=== PATIENT | female | born 1940 | race Caucasian/White ===

== ENCOUNTER 2017-02-27 08:18 | Inpatient (IN) | payer OTHER ==
[~2017-02-27] VITALS: Ht 162.6 cm; Wt 65.4 kg
[~2017-02-27 08:18] MED LIST: ADVAIR 250/501 DISK; CATAPRES0.1 MG PO; DESYREL12.5 MG PO; DIAZEPAM10 MG PO; FORTICAL3.7 ML ALT NARES; GLUCOPHAGE1000 MG PO; GLUCOTROL5 MG PO; LIPITOR10 MG PO; LOTREL 5/101 CAPSULE PO; NEXIUM40 MG PO; SPIRIVA1 INHALATI IH
[2017-02-27 09:09] LABS: EOSINOPHIL (%) 1.1 % (0-5); EOSINOPHIL COUNT 0.1 K/uL (0-0.3); HEMATOCRIT 32.3 % (36.0-46.0); IMMATURE GRANULOCYTE (%) 0.3 % (0.0-0.7); INSTRUMENT ABS NEUTROPHIL CT 5.7 K/uL; LYMPHOCYTE COUNT 1.1 K/uL (1.0-2.8); MCH 25.4 PG (29.0-34.0); MCHC 32.5 G/DL (30.0-36.0); MCV 78.2 FL (83-99); MEAN PLAT.VOLUME 9.5 uM^3 (9.5-12.4); MONOCYTE (%) 6.5 % (3-12); MONOCYTE COUNT 0.5 K/uL (0-0.8); NEUTROPHIL (%) 76.9 % (45-76); NEUTROPHIL COUNT 5.7 K/uL (1.8-6.4); PLATELET COUNT 333 K/uL (156-360); RBC DIS.WIDTH-CV 16.5 % (11.8-14.6); RED BLOOD COUNT 4.13 M/uL (3.80-5.20); WHITE BLOOD COUNT 7.4 K/uL (4.1-10.2)
[2017-02-27 09:19] LABS: INTER. NORMALIZED RATIO 1.1; PROTHROMBIN TIME 10.9 (9.2-11.2); PTT 37.4 (25-32)
[2017-02-27 09:21] LABS: CHLORIDE 90 mEq/L (99-109); POTASSIUM 4.1 mEq/L (3.7-5.4); SODIUM 128 mEq/L (136-147)
[2017-02-27 09:22] LABS: GLUCOSE 235 mg/dL (70-99)
[2017-02-27 09:24] LABS: ANION GAP 14 MEQ/L (2-14)
[2017-02-27 09:26] LABS: GFR ESTIMATE (CALCULATED) > 59 mL/min/
[2017-02-27 09:27] LABS: UREA NITROGEN (BUN) 7 mg/dL (9-23)
[2017-02-27 09:30] LABS: TROP-I INTERPRETATION NEGATIVE; TROPONIN-I < 0.01 ng/mL (0.0-0.30)
[2017-02-27] MEDS ORDERED: XYZAL5 MG PO (11:22)
[2017-02-27] MEDS ORDERED: CARAFATE1 GM PO (11:23)
[2017-02-27] MEDS ORDERED: NEURONTIN300 MG PO (11:24)
[2017-02-27] MEDS ORDERED: MYRBETRIQ25 MG PO (11:25)
[2017-02-27] MEDS ORDERED: ANTIVERT12.5 MG PO (11:26)
[2017-02-27] MEDS ORDERED: LOW DOSE ASPIRI81 M1 PO (11:27)
[2017-02-27] MEDS ORDERED: DESYREL 150 MG150 MG PO (11:27)
[2017-02-27] MEDS ORDERED: DAILY VITE1 EAC1 PO (11:28)
[2017-02-27] MEDS ORDERED: CITRACAL SOFT1 EACH PO (11:29)
[2017-02-27] MEDS ORDERED: VITAMIN D35000 UNIT PO (11:30)
[2017-02-27] MEDS ORDERED: AMBIEN10 MG PO (11:31)
[2017-02-27] MEDS ORDERED: INCRUSE ELLI62.5 MCG IH (11:31)
[2017-02-27] MEDS ORDERED: BREO ELLIPTA I1 EACH IH (11:31)
[2017-02-27 14:22] VITALS: BP 131/61
[2017-02-27 21:10] VITALS: BP 140/79
[2017-02-27 23:54] VITALS: BP 118/59
[2017-02-28 03:48] VITALS: BP 136/63
[2017-02-28 06:13] LABS: EOSINOPHIL (%) 0 % (0-5); HEMATOCRIT 26.8 % (36.0-46.0); IMMATURE GRANULOCYTE (%) 0.5 % (0.0-0.7); INSTRUMENT ABS NEUTROPHIL CT 5.2 K/uL; MCH 25.1 PG (29.0-34.0); MCHC 32.5 G/DL (30.0-36.0); MCV 77.5 FL (83-99); MEAN PLAT.VOLUME 9.3 uM^3 (9.5-12.4); MONOCYTE (%) 2.1 % (3-12); MONOCYTE COUNT 0.1 K/uL (0-0.8); NEUTROPHIL (%) 81.7 % (45-76); NEUTROPHIL COUNT 5.2 K/uL (1.8-6.4); PLATELET COUNT 297 K/uL (156-360); RBC DIS.WIDTH-CV 16.5 % (11.8-14.6); RBC DIS.WIDTH-SD 46.8 % (39-53); RED BLOOD COUNT 3.46 M/uL (3.80-5.20); WHITE BLOOD COUNT 6.3 K/uL (4.1-10.2)
[2017-02-28 06:39] LABS: ANION GAP 10 MEQ/L (2-14); CHLORIDE 94 MEQ/L (99-109); GFR ESTIMATE (CALCULATED) > 59 mL/min/; GLUCOSE 212 mg/dL (70-99); POTASSIUM 4.2 MEQ/L (3.7-5.4); SAMPLE HEMOLYSIS CHECK 0; SAMPLE ICTERIC CHECK 0; SAMPLE LIPEMIA CHECK 0; SODIUM 129 MEQ/L (136-147); UREA NITROGEN (BUN) 8 mg/dL (9-23)
[2017-02-28 07:35] VITALS: BP 132/68
[2017-02-28 07:44] LABS: INTERNAL CONTROL VALID? YES
[2017-02-28 11:15] VITALS: BP 148/72
[2017-02-28 15:53] VITALS: BP 137/63
[2017-02-28 19:08] VITALS: BP 158/70
[2017-02-28 23:36] VITALS: BP 149/73
[2017-03-01 03:22] VITALS: BP 145/74
[2017-03-01 06:06] LABS: HEMATOCRIT 28.4 % (36.0-46.0); MCH 25.1 PG (29.0-34.0); MCHC 31.7 G/DL (30.0-36.0); MCV 79.1 FL (83-99); MEAN PLAT.VOLUME 9.5 uM^3 (9.5-12.4); PLATELET COUNT 370 K/uL (156-360); RBC DIS.WIDTH-CV 16.8 % (11.8-14.6); RBC DIS.WIDTH-SD 48.3 % (39-53); RED BLOOD COUNT 3.59 M/uL (3.80-5.20); WHITE BLOOD COUNT 10.5 K/uL (4.1-10.2)
[2017-03-01 06:31] LABS: POINT-OF-CARE METER ID UU14208750
[2017-03-01 06:32] LABS: ANION GAP 8 MEQ/L (2-14); CHLORIDE 101 MEQ/L (99-109); GFR ESTIMATE (CALCULATED) > 59 mL/min/; GLUCOSE 245 mg/dL (70-99); POTASSIUM 4.3 MEQ/L (3.7-5.4); SAMPLE HEMOLYSIS CHECK 0; SAMPLE ICTERIC CHECK 0; SAMPLE LIPEMIA CHECK 0; SODIUM 135 MEQ/L (136-147); UREA NITROGEN (BUN) 8 mg/dL (9-23)
[2017-03-01 07:25] VITALS: BP 142/68
[2017-03-01 11:24] LABS: METH RESISTANT S AUREUS PCR NEGATIVE (NEGATIVE)
[2017-03-01 11:29] LABS: POINT-OF-CARE METER ID UU14208750
[2017-03-01 11:33] LABS: PROBE CHECK PASS; SPECIMEN PROCESSING CONTROL PASS
[2017-03-01 16:00] VITALS: BP 143/67
[2017-03-01 16:50] LABS: POINT-OF-CARE METER ID UU14208750
[2017-03-01 21:26] LABS: POINT-OF-CARE METER ID UU14208750
[2017-03-01 23:17] VITALS: BP 137/83
[2017-03-02 06:19] LABS: POINT-OF-CARE METER ID UU14208750
[2017-03-02 07:20] VITALS: BP 180/84
[2017-03-02 12:57] VITALS: BP 161/70
[2017-03-02 15:30] VITALS: BP 178/96
[2017-03-03 01:00] VITALS: BP 168/76
[2017-03-03 06:42] LABS: POINT-OF-CARE METER ID UU14208750
[2017-03-03 07:00] LABS: HEMATOCRIT 32.2 % (36.0-46.0); MCH 25.7 PG (29.0-34.0); MCV 80.3 FL (83-99); MEAN PLAT.VOLUME 9.4 uM^3 (9.5-12.4); RBC DIS.WIDTH-CV 17.2 % (11.8-14.6); RBC DIS.WIDTH-SD 50.5 % (39-53); RED BLOOD COUNT 4.01 M/uL (3.80-5.20); WHITE BLOOD COUNT 11.3 K/uL (4.1-10.2)
[2017-03-03 07:05] LABS: PLATELET COUNT 488 K/uL (156-360)
[2017-03-03 07:17] LABS: ANION GAP 10 MEQ/L (2-14); CHLORIDE 100 MEQ/L (99-109); GFR ESTIMATE (CALCULATED) > 59 mL/min/; GLUCOSE 101 mg/dL (70-99); MAGNESIUM 1.8 mg/dl (1.3-2.7); POTASSIUM 3.3 MEQ/L (3.7-5.4); SAMPLE HEMOLYSIS CHECK 0; SAMPLE ICTERIC CHECK 0; SAMPLE LIPEMIA CHECK 0; SODIUM 141 MEQ/L (136-147); UREA NITROGEN (BUN) 9 mg/dL (9-23)
[2017-03-03 07:30] VITALS: BP 134/62
[2017-03-03 11:40] LABS: POINT-OF-CARE METER ID UU14208750
[2017-03-03 16:21] VITALS: BP 140/86
[2017-03-03 16:32] LABS: C DIFF TOXIN NEGATIVE (NEGATIVE); PROBE CHECK PASS; SPECIMEN PROCESSING CONTROL PASS
[2017-03-03 21:48] LABS: POINT-OF-CARE METER ID UU14208750
[2017-03-03 23:48] VITALS: BP 128/62
[2017-03-04 06:49] LABS: POINT-OF-CARE METER ID UU14208750
[2017-03-04 07:00] VITALS: BP 160/90
[2017-03-04 07:25] LABS: ANION GAP 12 MEQ/L (2-14); CHLORIDE 98 MEQ/L (99-109); GFR ESTIMATE (CALCULATED) > 59 mL/min/; GLUCOSE 93 mg/dL (70-99); POTASSIUM 3.1 MEQ/L (3.7-5.4); SAMPLE HEMOLYSIS CHECK 0; SAMPLE ICTERIC CHECK 0; SAMPLE LIPEMIA CHECK 0; SODIUM 141 MEQ/L (136-147); UREA NITROGEN (BUN) 7 mg/dL (9-23)
[2017-03-04 11:27] LABS: POINT-OF-CARE METER ID UU14208750
[2017-03-04 15:48] VITALS: BP 128/60
[2017-03-04 16:57] LABS: POINT-OF-CARE METER ID UU14208750
[2017-03-04 21:27] LABS: POINT-OF-CARE METER ID UU14208750
[2017-03-05] VITALS: BP 119/69
[2017-03-05 06:19] LABS: POINT-OF-CARE METER ID UU14208750
[2017-03-05 08:05] LABS: ANION GAP 9 MEQ/L (2-14); CHLORIDE 98 MEQ/L (99-109); GFR ESTIMATE (CALCULATED) > 59 mL/min/; SAMPLE HEMOLYSIS CHECK 0; SAMPLE ICTERIC CHECK 0; SAMPLE LIPEMIA CHECK 0; SODIUM 138 MEQ/L (136-147); UREA NITROGEN (BUN) 11 mg/dL (9-23)
[2017-03-05 08:07] VITALS: BP 138/70
[2017-03-05 08:07] LABS: GLUCOSE 178 mg/dL (70-99); MAGNESIUM 1.5 mg/dl (1.3-2.7); POTASSIUM 3.9 MEQ/L (3.7-5.4)
[2017-03-05] MEDS ORDERED: VENTOLIN HFA18 GM IH (08:58)
[2017-03-05] MEDS ORDERED: CEFTIN500 MG PO (08:58)
[2017-03-05] MEDS ORDERED: PREDNISONE10 MG PO (08:58)
[2017-03-05] MEDS ORDERED: ZOFRAN4 MG PO (09:03)
[2017-03-05] MEDS ORDERED: TESSALON PERLE100 MG PO (11:00)
[2017-03-05 11:50] LABS: POINT-OF-CARE METER ID UU14208750
== END 2017-03-05 14:30 | disposition home health service (06) | DRG 190 ==
LOC: EME 08:18 → EDOF 10:55 → 2EAST 10:55
PROVIDERS: Emergency Medicine; Hospitalist; Internal Medicine
DX: J44.0 Chronic obstructive pulmonary disease with (acute) lower respiratory infection (principal); J18.9 Pneumonia, unspecified organism; J96.21 Acute and chronic respiratory failure with hypoxia; E87.1 Hypo-osmolality and hyponatremia; J44.1 Chronic obstructive pulmonary disease with (acute) exacerbation; E86.1 Hypovolemia; E86.0 Dehydration; D64.9 Anemia, unspecified; K21.9 Gastro-esophageal reflux disease without esophagitis; E78.5 Hyperlipidemia, unspecified; I10 Essential (primary) hypertension; J98.4 Other disorders of lung; E87.6 Hypokalemia; E11.9 Type 2 diabetes mellitus without complications; R19.7 Diarrhea, unspecified; Z99.81 Dependence on supplemental oxygen; Z90.49 Acquired absence of other specified parts of digestive tract; Z79.84 Long term (current) use of oral hypoglycemic drugs; Z79.82 Long term (current) use of aspirin; Z87.01 Personal history of pneumonia (recurrent); Z87.891 Personal history of nicotine dependence; Z90.711 Acquired absence of uterus with remaining cervical stump; Z88.2 Allergy status to sulfonamides
CPT/HCPCS: 71010; 71260; 80048; 82948; 83735; 83880; 84484; 85025; 85027; 85610; 85730; 87040; 87070; 87205; 87449; 87493; 87641; 93005; 94010; 94640; 94640 76; 94644; 94667; 94668; 94760; 94799; 97530 GP; 99202; 99281; 99285; J1650; J1815; J1956; J2405; J2543; J2920; J2930; J3370; J7030; J7050; J7512

== ENCOUNTER 2018-01-09 19:27 | Inpatient (IN) | payer OTHER ==
[~2018-01-09] VITALS: Ht 177.8 cm; Wt 71.8 kg
[~2018-01-09 19:27] MED LIST changes: +AMBIEN10 MG PO; +ANTIVERT12.5 MG PO; +BREO ELLIPTA I1 EACH IH; +CARAFATE1 GM PO; +CEFTIN500 MG PO; +CITRACAL SOFT1 EACH PO; +DAILY VITE1 EAC1 PO; +DESYREL 150 MG150 MG PO; -DIAZEPAM10 MG PO; +GLUCOTROL10 MG PO; -GLUCOTROL5 MG PO; +INCRUSE ELLI62.5 MCG IH; +LOW DOSE ASPIRI81 M1 PO; +MYRBETRIQ25 MG PO; +NEURONTIN300 MG PO; +PREDNISONE10 MG PO; +TESSALON PERLE100 MG PO; +VALIUM5 MG PO; +VENTOLIN HFA18 GM IH; +VITAMIN D35000 UNI2 PO; +XYZAL5 MG PO; +ZOFRAN4 MG PO
[2018-01-09 19:50] LABS: HEMATOCRIT 33.5 % (36.0-46.0); HEMOGLOBIN 11.1 G/DL (11.9-15.5); MCH 26.1 PG (29.0-34.0); MCHC 33.1 G/DL (30.0-36.0); MCV 78.6 FL (83-99); PLATELET COUNT 490 K/uL (156-360); RBC DIS.WIDTH-CV 15.6 % (11.8-14.6); RBC DIS.WIDTH-SD 44.1 % (39-53); RED BLOOD COUNT 4.26 M/uL (3.80-5.20); WHITE BLOOD COUNT 9.1 K/uL (4.1-10.2)
[2018-01-09 19:58] LABS: ALBUMIN 3.8 g/dL (3.2-4.8); CHLORIDE 96 mEq/L (99-109); POTASSIUM 4.2 mEq/L (3.7-5.4); SODIUM 134 mEq/L (136-147)
[2018-01-09 20:00] LABS: GLUCOSE 195 mg/dL (70-99)
[2018-01-09 20:01] LABS: TOTAL PROTEIN 6.7 g/dL (6.4-8.3)
[2018-01-09 20:02] LABS: TOTAL BILIRUBIN 0.6 mg/dL (0.0-1.0)
[2018-01-09 20:04] LABS: ALKALINE PHOSPHATASE 69 IU/L (3-129); CREATININE 1.6 mg/dL (0.6-1.3); GFR ESTIMATE (CALCULATED) 33 mL/min/
[2018-01-09 20:05] LABS: UREA NITROGEN (BUN) 18 mg/dL (9-23)
[2018-01-09 20:06] LABS: AST (GOT) 18 IU/L (2-34)
[2018-01-09 20:07] LABS: ALT (GPT) 17 IU/L (3-49); LIPASE 8 U/L (1.0-51.0)
[2018-01-09] MEDS ORDERED: EXFORGE 10/11 TABLET PO (23:03)
[2018-01-09] MEDS ORDERED: FLONASE16 G1 BOTH NARES (23:03)
[2018-01-09] MEDS ORDERED: ADVAIR 500/501 DISK IH (23:04)
[2018-01-09] MEDS ORDERED: PROAIR HFA8.5 GM IH (23:05)
[2018-01-10 01:20] VITALS: BP 103/57
[2018-01-10 05:32] LABS: HEMATOCRIT 29.4 % (36.0-46.0); HEMOGLOBIN 9.3 G/DL (11.9-15.5); MCH 25.8 PG (29.0-34.0); MCHC 31.6 G/DL (30.0-36.0); MCV 81.7 FL (83-99); PLATELET COUNT 422 K/uL (156-360); RBC DIS.WIDTH-SD 47.5 % (39-53); WHITE BLOOD COUNT 11.3 K/uL (4.1-10.2)
[2018-01-10 06:07] LABS: CHLORIDE 103 MEQ/L (99-109); CREATININE 1.9 MG/DL (0.6-1.3); GFR ESTIMATE (CALCULATED) 27 mL/min/; GLUCOSE 128 mg/dL (70-99); POTASSIUM 4.6 MEQ/L (3.7-5.4); SODIUM 135 MEQ/L (136-147); UREA NITROGEN (BUN) 24 mg/dL (9-23)
[2018-01-10 08:39] VITALS: BP 118/53
[2018-01-10 11:10] VITALS: BP 119/56
[2018-01-10 15:34] VITALS: BP 88/49
[2018-01-10 17:56] VITALS: BP 127/60
[2018-01-10 20:46] VITALS: BP 106/54
[2018-01-10 21:53] LABS: HEMATOCRIT 28.6 % (36.0-46.0); HEMOGLOBIN 8.9 G/DL (11.9-15.5); MCH 25.4 PG (29.0-34.0); MCHC 31.1 G/DL (30.0-36.0); MCV 81.7 FL (83-99); PLATELET COUNT 364 K/uL (156-360); RBC DIS.WIDTH-CV 16.4 % (11.8-14.6); RBC DIS.WIDTH-SD 48.2 % (39-53); WHITE BLOOD COUNT 4.3 K/uL (4.1-10.2)
[2018-01-10 22:48] LABS: ALBUMIN 2.8 G/DL (3.2-4.8); ALKALINE PHOSPHATASE 53 IU/L (3-129); ALT (GPT) 17 IU/L (3-49); AST (GOT) 35 IU/L (2-34); CHLORIDE 107 MEQ/L (99-109); GLUCOSE 111 mg/dL (70-99); MAGNESIUM 1.1 mg/dl (1.3-2.7); PHOSPHORUS 5.1 mg/dL (2.5-4.9); POTASSIUM 4.8 MEQ/L (3.7-5.4); SODIUM 138 MEQ/L (136-147); TOTAL BILIRUBIN 0.4 MG/DL (0.0-1.0); TOTAL PROTEIN 5.2 G/DL (6.4-8.3); UREA NITROGEN (BUN) 35 mg/dL (9-23)
[2018-01-10 22:50] LABS: CREATININE 2.5 MG/DL (0.6-1.3); GFR ESTIMATE (CALCULATED) 20 mL/min/
[2018-01-11] VITALS (8 sets, daily range): BP systolic 94–149; BP diastolic 45–74
[2018-01-11 04:10] LABS: APPEARANCE CLOUDY ((CLEAR)); BILIRUBIN NEGATIVE; BLOOD NEGATIVE; COLOR AMBER ((YELLOW)); GLUCOSE (STRIP) 50; KETONES 5; LEUKOCYTES TRACE; NITRITE NEGATIVE; PROTEIN (STRIP) 30; SPECIFIC GRAVITY 1.027 (1.000-1.030); UROBILINOGEN 0.2 MG/DL (0.2-1.0)
[2018-01-11 04:24] LABS: BACTERIA NONE SEEN /HPF; EPITHELIAL CELLS RARE /HPF; MUCUS NONE SEEN /LPF; RED BLOOD CELLS 0-5 /HPF (0-5); UCUL ADDED? YES
[2018-01-11 09:24] LABS: HEMATOCRIT 26.4 % (36.0-46.0); HEMOGLOBIN 8.3 G/DL (11.9-15.5); MCHC 31.4 G/DL (30.0-36.0); MCV 82.8 FL (83-99); NRBC (%) 0.3 /100 WBC (0-0); PLATELET COUNT 346 K/uL (156-360); RBC DIS.WIDTH-CV 16.7 % (11.8-14.6); RBC DIS.WIDTH-SD 50.1 % (39-53); RED BLOOD COUNT 3.19 M/uL (3.80-5.20); WHITE BLOOD COUNT 6.9 K/uL (4.1-10.2)
[2018-01-11 09:44] LABS: CHLORIDE 112 MEQ/L (99-109); CREATININE 2.8 MG/DL (0.6-1.3); GFR ESTIMATE (CALCULATED) 18 mL/min/; GLUCOSE 92 mg/dL (70-99); POTASSIUM 4.9 MEQ/L (3.7-5.4); SODIUM 140 MEQ/L (136-147); UREA NITROGEN (BUN) 46 mg/dL (9-23)
[2018-01-11 09:55] LABS: ABS NEUTROPHIL COUNT 5.2; ANISOCYTOSIS 2+; BAND NEUTROPHILS 38.3 % (0-8.0); BASOPHILS 0.9 %; BURR CELLS 2+; EOSINOPHIL ABS CT 0.2; EOSINOPHILS 2.6 % (0-5.0); LYMPHOCYTES 14.8 % (15.0-45.0); MACROCYTES 1+; METAMYELOCYTES 1.7 %; MONOCYTES 4.3 % (0-9.0); OVALOCYTES 1+; PLAT.SUFFICIENCY INCREASED; POIKILOCYTOSIS 3+; POLYCHROMASIA 1+; SEG.NEUTROPHILS 37.4 % (46.0-76.0)
[2018-01-11 19:35] LABS: BASE EXCESS -10.3 mEq/L (-3 to +3); BICARBONATE 16.8 mEq/L (22-26); CARBOXY HGB 0.4 % (0-5); COMMENTS - BLOOD GASES C+A+; DEVICE NRBM; METHEMOGLOBIN 0.7 % (0-1.5); O2 FLOW 15 L/MIN; PCO2 41 mm Hg (35-45); PO2 122 mm Hg (80-100); SITE RR; pH 7.22 (7.35-7.45)
[2018-01-11 19:47] LABS: HEMOGLOBIN 8.1 G/DL (11.9-15.5); MCH 25.5 PG (29.0-34.0); MCHC 31.2 G/DL (30.0-36.0); MCV 81.8 FL (83-99); PLATELET COUNT 350 K/uL (156-360); RBC DIS.WIDTH-CV 16.8 % (11.8-14.6); RBC DIS.WIDTH-SD 50.4 % (39-53); RED BLOOD COUNT 3.18 M/uL (3.80-5.20); WHITE BLOOD COUNT 7.5 K/uL (4.1-10.2)
[2018-01-11 20:07] LABS: TROP-I INTERPRETATION NEGATIVE; TROPONIN-I 0.03 ng/mL (0.0-0.30)
[2018-01-11 20:16] LABS: CHLORIDE 110 MEQ/L (99-109); CREATININE 2.9 MG/DL (0.6-1.3); GFR ESTIMATE (CALCULATED) 17 mL/min/; POTASSIUM 4.7 MEQ/L (3.7-5.4); SODIUM 137 MEQ/L (136-147); UREA NITROGEN (BUN) 48 mg/dL (9-23)
[2018-01-11 20:18] LABS: GLUCOSE 257 mg/dL (70-99)
[2018-01-12] VITALS (22 sets, daily range): BP systolic 89–180; BP diastolic 43–85
[2018-01-12 03:23] LABS: BASE EXCESS -11.2 mEq/L (-3 to +3); BICARBONATE 16.4 mEq/L (22-26); CARBOXY HGB 0.3 % (0-5); COMMENTS - BLOOD GASES C+A+; DEVICE VENT; FI02 100 %; MECHANICAL RATE 16 resp/min; METHEMOGLOBIN 0.7 % (0-1.5); MODE AC; PCO2 43 mm Hg (35-45); PEEP 5 CM/H20; PO2 159 mm Hg (80-100); SITE LR; TIDAL VOLUME 450 ML; TOTAL RESP RATE 16 resp/min
[2018-01-12 03:24] LABS: pH 7.19 (7.35-7.45)
[2018-01-12 03:24] LABS: HEMATOCRIT 31.1 % (36.0-46.0); MCHC 32.2 G/DL (30.0-36.0); PLATELET COUNT 316 K/uL (156-360); RBC DIS.WIDTH-CV 16.9 % (11.8-14.6); RBC DIS.WIDTH-SD 49.4 % (39-53); WHITE BLOOD COUNT 5.2 K/uL (4.1-10.2)
[2018-01-12 03:32] LABS: POTASSIUM 4.7 mEq/L (3.7-5.4); SODIUM 142 mEq/L (136-147)
[2018-01-12 03:34] LABS: GLUCOSE 230 mg/dL (70-99)
[2018-01-12 03:38] LABS: CREATININE 2.7 mg/dL (0.6-1.3); GFR ESTIMATE (CALCULATED) 18 mL/min/
[2018-01-12 03:39] LABS: UREA NITROGEN (BUN) 50 mg/dL (9-23)
[2018-01-12 03:41] LABS: CHLORIDE 113 mEq/L (99-109)
[2018-01-12 03:47] LABS: MAGNESIUM 1.2 mg/dL (1.3-2.7)
[2018-01-12 03:52] LABS: PHOSPHORUS 5.1 mg/dL (2.5-4.9)
[2018-01-12 04:21] LABS: ALBUMIN 2.3 G/DL (3.2-4.8); TOTAL BILIRUBIN 0.4 MG/DL (0.0-1.0)
[2018-01-12 04:39] LABS: ABS NEUTROPHIL COUNT 4.8; BAND NEUTROPHILS 27.3 % (0-8.0); BURR CELLS 2+; EOSINOPHIL ABS CT 0; LYMPHOCYTES 7.3 % (15.0-45.0); OVALOCYTES 1+; PLAT.SUFFICIENCY ADEQUATE; POIKILOCYTOSIS 3+
[2018-01-12 04:43] LABS: SEG.NEUTROPHILS 65.4 % (46.0-76.0)
[2018-01-12 05:31] LABS: COMMENTS - BLOOD GASES C+A+; DEVICE VENT; FI02 65 %; MECHANICAL RATE 19 resp/min; MODE AC; PCO2 37 mm Hg (35-45); PEEP 5 CM/H20; PO2 75 mm Hg (80-100); SITE LR; TIDAL VOLUME 450 ML; TOTAL RESP RATE 19 resp/min; pH 7.32 (7.35-7.45)
[2018-01-12 05:32] LABS: BASE EXCESS -6.4 mEq/L (-3 to +3); BICARBONATE 19.1 mEq/L (22-26); CARBOXY HGB 0.6 % (0-5); METHEMOGLOBIN 0.6 % (0-1.5)
[2018-01-12 06:16] LABS: ALKALINE PHOSPHATASE 58 IU/L (3-129); ALT (GPT) 23 IU/L (3-49); TOTAL PROTEIN 4.5 G/DL (6.4-8.3); TRIGLYCERIDES 318 MG/DL (Normal: <150)
[2018-01-12 06:36] LABS: AST (GOT) 54 IU/L (2-34)
[2018-01-12 06:50] LABS: RED BLOOD COUNT 3.84 M/uL (3.80-5.20)
[2018-01-12 10:25] LABS: HEMATOCRIT 28.3 % (36.0-46.0); HEMOGLOBIN 9.3 G/DL (11.9-15.5); MCH 25.7 PG (29.0-34.0); MCHC 32.9 G/DL (30.0-36.0); MCV 78.2 FL (83-99); NRBC (%) 0.3 /100 WBC (0-0); PLATELET COUNT 315 K/uL (156-360); RBC DIS.WIDTH-CV 16.7 % (11.8-14.6); RBC DIS.WIDTH-SD 47.5 % (39-53); RED BLOOD COUNT 3.62 M/uL (3.80-5.20); WHITE BLOOD COUNT 6.5 K/uL (4.1-10.2)
[2018-01-12 10:46] LABS: CHLORIDE 111 MEQ/L (99-109); CREATININE 2.7 MG/DL (0.6-1.3); GFR ESTIMATE (CALCULATED) 18 mL/min/; GLUCOSE 277 mg/dL (70-99); POTASSIUM 3.9 MEQ/L (3.7-5.4); SODIUM 142 MEQ/L (136-147); UREA NITROGEN (BUN) 49 mg/dL (9-23)
[2018-01-12 10:48] LABS: MAGNESIUM 1.9 mg/dl (1.3-2.7)
[2018-01-12 10:57] LABS: ABS NEUTROPHIL COUNT 5.2; ANISOCYTOSIS 1+; ATYPICAL LYMPHOCYTE 0.9 %; BURR CELLS 2+; EOSINOPHIL ABS CT 0.1; EOSINOPHILS 0.9 % (0-5.0); LYMPHOCYTES 14.9 % (15.0-45.0); MACROCYTES 1+; MONOCYTES 1.7 % (0-9.0); MYELOCYTES 0.9 %; NUCLEATED RBC'S 0.9; OVALOCYTES 2+; PLAT.SUFFICIENCY ADEQUATE; POIKILOCYTOSIS 3+; SEG.NEUTROPHILS 75.4 % (46.0-76.0); SMUDGE CELLS 3.5
[2018-01-12 10:58] LABS: BAND NEUTROPHILS 5.3 % (0-8.0)
[2018-01-13] VITALS (20 sets, daily range): BP systolic 97–152; BP diastolic 54–80
[2018-01-13 06:51] LABS: ALBUMIN 1.8 G/DL (3.2-4.8); ALKALINE PHOSPHATASE 38 IU/L (3-129); ALT (GPT) 16 IU/L (3-49); CHLORIDE 102 MEQ/L (99-109); GLUCOSE 336 mg/dL (70-99); POTASSIUM 3.2 MEQ/L (3.7-5.4); SODIUM 142 MEQ/L (136-147); UREA NITROGEN (BUN) 43 mg/dL (9-23)
[2018-01-13 06:56] LABS: CREATININE 2.2 MG/DL (0.6-1.3); GFR ESTIMATE (CALCULATED) 23 mL/min/; MAGNESIUM 1.6 mg/dl (1.3-2.7); PHOSPHORUS 2.7 mg/dL (2.5-4.9); TOTAL BILIRUBIN 0.3 MG/DL (0.0-1.0)
[2018-01-13 06:57] LABS: AST (GOT) 24 IU/L (2-34); TOTAL PROTEIN 3.7 G/DL (6.4-8.3)
[2018-01-13 07:05] LABS: MCH 25.2 PG (29.0-34.0); MCHC 33.8 G/DL (30.0-36.0); MCV 74.5 FL (83-99); NRBC (%) 0.4 /100 WBC (0-0); PLATELET COUNT 247 K/uL (156-360); RBC DIS.WIDTH-CV 15.9 % (11.8-14.6); RBC DIS.WIDTH-SD 43.2 % (39-53); WHITE BLOOD COUNT 7.9 K/uL (4.1-10.2)
[2018-01-13 07:06] LABS: ABS NEUTROPHIL COUNT 6.1; ATYPICAL LYMPHOCYTE 3.5 %; BAND NEUTROPHILS 3.5 % (0-8.0); BURR CELLS 2+; EOSINOPHIL ABS CT 0.1; EOSINOPHILS 0.9 % (0-5.0); LYMPHOCYTES 8.8 % (15.0-45.0); METAMYELOCYTES 1.7 %; MONOCYTES 7.9 % (0-9.0); OVALOCYTES 2+; PLAT.SUFFICIENCY ADEQUATE; POIKILOCYTOSIS 2+; SEG.NEUTROPHILS 73.7 % (46.0-76.0); TEAR DROP CELLS 1+
[2018-01-13 07:13] LABS: RED BLOOD COUNT 2.82 M/uL (3.80-5.20)
[2018-01-13 07:14] LABS: HEMOGLOBIN 7.1 G/DL (11.9-15.5)
[2018-01-13 08:02] LABS: PCO2 45 mm Hg (35-45); PO2 64 mm Hg (80-100); pH 7.48 (7.35-7.45)
[2018-01-13 08:03] LABS: BASE EXCESS 9.1 mEq/L (-3 to +3); BICARBONATE 33.5 mEq/L (22-26); CARBOXY HGB 0.4 % (0-5); COMMENTS - BLOOD GASES A+C+; METHEMOGLOBIN 0.7 % (0-1.5); O2 FLOW 60 L/MIN; SITE LR
[2018-01-13 08:04] LABS: DEVICE VENT; FI02 40 %; MECHANICAL RATE 19 resp/min; MODE AC; PEEP 5 CM/H20; TIDAL VOLUME 450 ML; TOTAL RESP RATE 19 resp/min
[2018-01-13 10:19] LABS: HEMOGLOBIN A1c (GLYCOHEMOGLOB) 7.3 % (Below 5.7)
[2018-01-14] VITALS (16 sets, daily range): BP systolic 91–151; BP diastolic 45–72
[2018-01-14 05:22] LABS: BASOPHIL (%) 0.1 % (0-1); EOSINOPHIL (%) 0.7 % (0-5); EOSINOPHIL COUNT 0.1 K/uL (0-0.3); HEMATOCRIT 20.4 % (36.0-46.0); HEMOGLOBIN 7.2 G/DL (11.9-15.5); LYMPHOCYTE (%) 22.6 % (15-42); LYMPHOCYTE COUNT 1.9 K/uL (1.0-2.8); MCH 26.2 PG (29.0-34.0); MCHC 35.3 G/DL (30.0-36.0); MCV 74.2 FL (83-99); MONOCYTE (%) 7.9 % (3-12); MONOCYTE COUNT 0.7 K/uL (0-0.8); NEUTROPHIL (%) 67.7 % (45-76); NEUTROPHIL COUNT 5.7 K/uL (1.8-6.4); PLATELET COUNT 274 K/uL (156-360); RBC DIS.WIDTH-CV 15.9 % (11.8-14.6); RBC DIS.WIDTH-SD 43.1 % (39-53); RED BLOOD COUNT 2.75 M/uL (3.80-5.20); WHITE BLOOD COUNT 8.4 K/uL (4.1-10.2)
[2018-01-14 05:30] LABS: CHLORIDE 105 mEq/L (99-109); POTASSIUM 2.8 mEq/L (3.7-5.4); SODIUM 145 mEq/L (136-147)
[2018-01-14 05:36] LABS: ALKALINE PHOSPHATASE 47 IU/L (3-129)
[2018-01-14 05:37] LABS: AST (GOT) 25 IU/L (2-34); UREA NITROGEN (BUN) 41 mg/dL (9-23)
[2018-01-14 05:38] LABS: CREATININE 1.5 mg/dL (0.6-1.3); GFR ESTIMATE (CALCULATED) 36 mL/min/; GLUCOSE 103 mg/dL (70-99); MAGNESIUM 2.3 mg/dL (1.3-2.7); PHOSPHORUS 1.9 mg/dL (2.5-4.9); TOTAL BILIRUBIN 0.3 mg/dL (0.0-1.0); TOTAL PROTEIN 3.5 g/dL (6.4-8.3)
[2018-01-14 05:39] LABS: ALT (GPT) 18 IU/L (3-49)
[2018-01-14 10:35] LABS: ANISOCYTOSIS 1+; MICROCYTOSIS 2+
[2018-01-14 15:23] LABS: CHLORIDE 111 MEQ/L (99-109); CREATININE 1.5 MG/DL (0.6-1.3); GFR ESTIMATE (CALCULATED) 36 mL/min/; GLUCOSE 96 mg/dL (70-99); SODIUM 144 MEQ/L (136-147); UREA NITROGEN (BUN) 38 mg/dL (9-23)
[2018-01-14 15:27] LABS: POTASSIUM 4.5 MEQ/L (3.7-5.4)
[2018-01-15] VITALS (25 sets, daily range): BP systolic 83–203; BP diastolic 47–88
[2018-01-15 05:37] LABS: CHLORIDE 113 MEQ/L (99-109); CREATININE 1.4 MG/DL (0.6-1.3); GFR ESTIMATE (CALCULATED) 39 mL/min/; GLUCOSE 76 mg/dL (70-99); PHOSPHORUS 3.7 mg/dL (2.5-4.9); POTASSIUM 4.6 MEQ/L (3.7-5.4); SODIUM 145 MEQ/L (136-147); UREA NITROGEN (BUN) 34 mg/dL (9-23)
[2018-01-15 06:00] LABS: BASOPHIL (%) 0.2 % (0-1); EOSINOPHIL (%) 1.1 % (0-5); EOSINOPHIL COUNT 0.2 K/uL (0-0.3); HEMATOCRIT 24.6 % (36.0-46.0); HEMOGLOBIN 8.3 G/DL (11.9-15.5); IMMATURE GRANULOCYTE (%) 1.7 % (0.0-0.7); LYMPHOCYTE (%) 15.2 % (15-42); LYMPHOCYTE COUNT 2.3 K/uL (1.0-2.8); MCH 25.7 PG (29.0-34.0); MCHC 33.7 G/DL (30.0-36.0); MCV 76.2 FL (83-99); MONOCYTE (%) 4.9 % (3-12); MONOCYTE COUNT 0.7 K/uL (0-0.8); NEUTROPHIL (%) 76.9 % (45-76); NEUTROPHIL COUNT 11.6 K/uL (1.8-6.4); PLATELET COUNT 248 K/uL (156-360); RBC DIS.WIDTH-CV 16.2 % (11.8-14.6); RBC DIS.WIDTH-SD 44.5 % (39-53); RED BLOOD COUNT 3.23 M/uL (3.80-5.20); WHITE BLOOD COUNT 15.1 K/uL (4.1-10.2)
[2018-01-16] VITALS (17 sets, daily range): BP systolic 122–191; BP diastolic 53–93
[2018-01-16 06:20] LABS: ALBUMIN 2.5 G/DL (3.2-4.8); ALKALINE PHOSPHATASE 60 IU/L (3-129); ALT (GPT) 11 IU/L (3-49); AST (GOT) 18 IU/L (2-34); CHLORIDE 112 MEQ/L (99-109); CREATININE 1.3 MG/DL (0.6-1.3); GFR ESTIMATE (CALCULATED) 42 mL/min/; POTASSIUM 4.1 MEQ/L (3.7-5.4); SODIUM 148 MEQ/L (136-147); UREA NITROGEN (BUN) 33 mg/dL (9-23)
[2018-01-16 06:22] LABS: GLUCOSE 116 mg/dL (70-99); TOTAL BILIRUBIN 0.5 MG/DL (0.0-1.0); TOTAL PROTEIN 4.4 G/DL (6.4-8.3)
[2018-01-16 06:49] LABS: HEMATOCRIT 24.8 % (36.0-46.0); HEMOGLOBIN 7.9 G/DL (11.9-15.5); MCH 25.8 PG (29.0-34.0); MCHC 31.9 G/DL (30.0-36.0); RBC DIS.WIDTH-CV 16.9 % (11.8-14.6); RED BLOOD COUNT 3.06 M/uL (3.80-5.20); WHITE BLOOD COUNT 20.5 K/uL (4.1-10.2)
[2018-01-16 07:04] LABS: PLATELET COUNT 332 K/uL (156-360)
[2018-01-16 09:05] LABS: COMMENTS - BLOOD GASES A+C+; DEVICE VENT; FI02 35 %; MECHANICAL RATE 19 resp/min; MODE AC/VC; PEEP 5 CM/H20; SITE LR; TIDAL VOLUME 450 ML; TOTAL RESP RATE 23 resp/min
[2018-01-16 09:06] LABS: PCO2 30 mm Hg (35-45); PO2 69 mm Hg (80-100); pH 7.26 (7.35-7.45)
[2018-01-16 09:07] LABS: BASE EXCESS -12.4 mEq/L (-3 to +3); BICARBONATE 13.5 mEq/L (22-26); CARBOXY HGB 1.6 % (0-5); METHEMOGLOBIN 0.2 % (0-1.5)
[2018-01-16 09:40] LABS: BASOPHIL (%) 0.2 % (0-1); EOSINOPHIL (%) 2.1 % (0-5); EOSINOPHIL COUNT 0.4 K/uL (0-0.3); HEMATOLOGY COMMENT 1 SMEAR COMPATIBLE; IMMATURE GRANULOCYTE (%) 3.3 % (0.0-0.7); LYMPHOCYTE (%) 11.8 % (15-42); LYMPHOCYTE COUNT 2.4 K/uL (1.0-2.8); MONOCYTE (%) 4.5 % (3-12); MONOCYTE COUNT 0.9 K/uL (0-0.8); NEUTROPHIL (%) 78.1 % (45-76)
[2018-01-16 11:08] LABS: HEMATOCRIT 24.8 % (36.0-46.0); MCH 26.1 PG (29.0-34.0); MCHC 32.3 G/DL (30.0-36.0); MCV 80.8 FL (83-99); PLATELET COUNT 338 K/uL (156-360); RBC DIS.WIDTH-CV 16.9 % (11.8-14.6); RBC DIS.WIDTH-SD 49.6 % (39-53); RED BLOOD COUNT 3.07 M/uL (3.80-5.20); WHITE BLOOD COUNT 22.4 K/uL (4.1-10.2)
[2018-01-16 11:32] LABS: CHLORIDE 112 MEQ/L (99-109); CREATININE 1.3 MG/DL (0.6-1.3); GFR ESTIMATE (CALCULATED) 42 mL/min/; GLUCOSE 158 mg/dL (70-99); POTASSIUM 3.8 MEQ/L (3.7-5.4); SODIUM 146 MEQ/L (136-147); UREA NITROGEN (BUN) 33 mg/dL (9-23)
[2018-01-16 11:57] LABS: BASOPHIL (%) 0.2 % (0-1); BASOPHIL COUNT 0.1 K/uL (0-0.1); EOSINOPHIL (%) 1.7 % (0-5); EOSINOPHIL COUNT 0.4 K/uL (0-0.3); IMMATURE GRANULOCYTE (%) 3.9 % (0.0-0.7); LYMPHOCYTE (%) 10.2 % (15-42); LYMPHOCYTE COUNT 2.3 K/uL (1.0-2.8); MONOCYTE (%) 4.2 % (3-12); MONOCYTE COUNT 0.9 K/uL (0-0.8); NEUTROPHIL (%) 79.8 % (45-76); NEUTROPHIL COUNT 17.8 K/uL (1.8-6.4)
[2018-01-16 21:23] LABS: HEMATOCRIT 24.5 % (36.0-46.0); HEMOGLOBIN 8.1 G/DL (11.9-15.5); MCHC 33.1 G/DL (30.0-36.0); MCV 78.8 FL (83-99); PLATELET COUNT 328 K/uL (156-360); RBC DIS.WIDTH-CV 17.1 % (11.8-14.6); RBC DIS.WIDTH-SD 47.8 % (39-53); RED BLOOD COUNT 3.11 M/uL (3.80-5.20); WHITE BLOOD COUNT 19.6 K/uL (4.1-10.2)
[2018-01-16 22:00] LABS: CHLORIDE 112 MEQ/L (99-109); CREATININE 1.1 MG/DL (0.6-1.3); GFR ESTIMATE (CALCULATED) 51 mL/min/; GLUCOSE 165 mg/dL (70-99); POTASSIUM 3.1 MEQ/L (3.7-5.4); SODIUM 149 MEQ/L (136-147); UREA NITROGEN (BUN) 29 mg/dL (9-23)
[2018-01-17] VITALS (23 sets, daily range): BP systolic 99–191; BP diastolic 50–96
[2018-01-17 06:02] LABS: CHLORIDE 112 MEQ/L (99-109); CREATININE 1.1 MG/DL (0.6-1.3); GFR ESTIMATE (CALCULATED) 51 mL/min/; GLUCOSE 197 mg/dL (70-99); PHOSPHORUS 3.2 mg/dL (2.5-4.9); POTASSIUM 3.2 MEQ/L (3.7-5.4); SODIUM 152 MEQ/L (136-147); UREA NITROGEN (BUN) 27 mg/dL (9-23)
[2018-01-17 06:14] LABS: MAGNESIUM 1.5 mg/dl (1.3-2.7)
[2018-01-17 06:17] LABS: PCO2 46 mm Hg (35-45); PO2 42 mm Hg (80-100); pH 7.42 (7.35-7.45)
[2018-01-17 06:18] LABS: BASE EXCESS 4.1 mEq/L (-3 to +3); BICARBONATE 29.8 mEq/L (22-26)
[2018-01-17 07:06] LABS: BASOPHIL (%) 0.1 % (0-1); EOSINOPHIL COUNT 0.4 K/uL (0-0.3); HEMATOCRIT 22.1 % (36.0-46.0); IMMATURE GRANULOCYTE (%) 2.3 % (0.0-0.7); LYMPHOCYTE (%) 13.1 % (15-42); LYMPHOCYTE COUNT 1.9 K/uL (1.0-2.8); MCH 24.9 PG (29.0-34.0); MCHC 31.7 G/DL (30.0-36.0); MCV 78.6 FL (83-99); MONOCYTE (%) 6.1 % (3-12); MONOCYTE COUNT 0.9 K/uL (0-0.8); NEUTROPHIL (%) 75.4 % (45-76); PLATELET COUNT 358 K/uL (156-360); RBC DIS.WIDTH-CV 16.3 % (11.8-14.6); RBC DIS.WIDTH-SD 46.6 % (39-53); RED BLOOD COUNT 2.81 M/uL (3.80-5.20); WHITE BLOOD COUNT 14.5 K/uL (4.1-10.2)
[2018-01-17 08:49] LABS: COMMENTS - BLOOD GASES +C; DEVICE PB980; FI02 40 %; MODE SPONT; PCO2 44 mm Hg (35-45); PEEP 6 CM/H20; PO2 59 mm Hg (80-100); PRES. SUPPORT 10 CM/H2O; SITE RR +A; TOTAL RESP RATE 18 resp/min; pH 7.49 (7.35-7.45)
[2018-01-17 08:50] LABS: METHEMOGLOBIN 1.2 % (0-1.5)
[2018-01-17 08:51] LABS: BASE EXCESS 9.3 mEq/L (-3 to +3); BICARBONATE 33.5 mEq/L (22-26)
[2018-01-17 12:32] LABS: APPEARANCE SL.HAZY ((CLEAR)); BILIRUBIN NEGATIVE; BLOOD MODERATE; COLOR YELLOW ((YELLOW)); GLUCOSE (STRIP) 150; KETONES 20; LEUKOCYTES TRACE; NITRITE NEGATIVE; PROTEIN (STRIP) 100; SPECIFIC GRAVITY 1.018 (1.000-1.030); UROBILINOGEN 0.2 MG/DL (0.2-1.0)
[2018-01-17 12:59] LABS: COARSE GRANULAR CASTS 0-5 /LPF; EPITHELIAL CELLS RARE /HPF; MUCUS TRACE /LPF
[2018-01-17 13:00] LABS: RED BLOOD CELLS 20-30 /HPF (0-5)
[2018-01-17 13:01] LABS: BACTERIA 1+ /HPF; UCUL ADDED? YES
[2018-01-18] VITALS (18 sets, daily range): BP systolic 93–171; BP diastolic 47–106
[2018-01-18 05:16] LABS: BASOPHIL (%) 0.2 % (0-1); EOSINOPHIL (%) 3.1 % (0-5); EOSINOPHIL COUNT 0.5 K/uL (0-0.3); HEMATOCRIT 22.3 % (36.0-46.0); HEMOGLOBIN 7.2 G/DL (11.9-15.5); IMMATURE GRANULOCYTE (%) 1.4 % (0.0-0.7); LYMPHOCYTE (%) 13.9 % (15-42); LYMPHOCYTE COUNT 2.2 K/uL (1.0-2.8); MCH 25.1 PG (29.0-34.0); MCHC 32.3 G/DL (30.0-36.0); MCV 77.7 FL (83-99); MONOCYTE (%) 6.5 % (3-12); NEUTROPHIL (%) 74.9 % (45-76); NEUTROPHIL COUNT 11.6 K/uL (1.8-6.4); PLATELET COUNT 411 K/uL (156-360); RBC DIS.WIDTH-CV 16.5 % (11.8-14.6); RBC DIS.WIDTH-SD 46.2 % (39-53); RED BLOOD COUNT 2.87 M/uL (3.80-5.20); WHITE BLOOD COUNT 15.5 K/uL (4.1-10.2)
[2018-01-18 06:16] LABS: ALBUMIN 1.8 G/DL (3.2-4.8); ALKALINE PHOSPHATASE 42 IU/L (3-129); ALT (GPT) 9 IU/L (3-49); CHLORIDE 111 MEQ/L (99-109); CREATININE 0.9 MG/DL (0.6-1.3); GFR ESTIMATE (CALCULATED) > 59 mL/min/; GLUCOSE 155 mg/dL (70-99); PHOSPHORUS 2.6 mg/dL (2.5-4.9); POTASSIUM 3.5 MEQ/L (3.7-5.4); SODIUM 149 MEQ/L (136-147); TOTAL PROTEIN 3.9 G/DL (6.4-8.3); UREA NITROGEN (BUN) 20 mg/dL (9-23)
[2018-01-18 06:17] LABS: COMMENTS - BLOOD GASES A+C+; DEVICE VENT; FI02 60 %; MODE SPONT; PCO2 45 mm Hg (35-45); PO2 65 mm Hg (80-100); SITE RR; TOTAL RESP RATE 20 resp/min; pH 7.44 (7.35-7.45)
[2018-01-18 06:18] LABS: BASE EXCESS 5.8 mEq/L (-3 to +3); BICARBONATE 30.6 mEq/L (22-26); PEEP 6 CM/H20; PRES. SUPPORT 10 CM/H2O
[2018-01-18 06:21] LABS: AST (GOT) 9 IU/L (2-34); MAGNESIUM 1.9 mg/dl (1.3-2.7); TOTAL BILIRUBIN 0.3 MG/DL (0.0-1.0)
[2018-01-19] VITALS (17 sets, daily range): BP systolic 109–153; BP diastolic 1–103
[2018-01-19 10:55] LABS: BASOPHIL (%) 0.2 % (0-1); EOSINOPHIL (%) 2.2 % (0-5); EOSINOPHIL COUNT 0.4 K/uL (0-0.3); HEMOGLOBIN 7.6 G/DL (11.9-15.5); IMMATURE GRANULOCYTE (%) 0.9 % (0.0-0.7); LYMPHOCYTE (%) 9.8 % (15-42); LYMPHOCYTE COUNT 1.6 K/uL (1.0-2.8); MCH 24.8 PG (29.0-34.0); MCHC 30.4 G/DL (30.0-36.0); MCV 81.4 FL (83-99); MONOCYTE (%) 4.8 % (3-12); MONOCYTE COUNT 0.8 K/uL (0-0.8); NEUTROPHIL (%) 82.1 % (45-76); NEUTROPHIL COUNT 13.7 K/uL (1.8-6.4); PLATELET COUNT 487 K/uL (156-360); RBC DIS.WIDTH-CV 16.9 % (11.8-14.6); RBC DIS.WIDTH-SD 49.3 % (39-53); RED BLOOD COUNT 3.07 M/uL (3.80-5.20); WHITE BLOOD COUNT 16.8 K/uL (4.1-10.2)
[2018-01-19 11:08] LABS: ALKALINE PHOSPHATASE 38 IU/L (3-129); ALT (GPT) 10 IU/L (3-49); CHLORIDE 110 MEQ/L (99-109); CREATININE 0.9 MG/DL (0.6-1.3); DIRECT BILIRUBIN 0.1 mg/dL (0.0-0.3); GFR ESTIMATE (CALCULATED) > 59 mL/min/; GLUCOSE 168 mg/dL (70-99); MAGNESIUM 1.8 mg/dl (1.3-2.7); PHOSPHORUS 3.4 mg/dL (2.5-4.9); POTASSIUM 3.3 MEQ/L (3.7-5.4); PREALBUMIN 6.1 mg/dL (10-40); SODIUM 151 MEQ/L (136-147); TOTAL BILIRUBIN 0.3 MG/DL (0.0-1.0); TRIGLYCERIDES 224 MG/DL (Normal: <150); UREA NITROGEN (BUN) 21 mg/dL (9-23)
[2018-01-19 11:10] LABS: AST (GOT) 14 IU/L (2-34); TOTAL PROTEIN 4.5 G/DL (6.4-8.3)
[2018-01-19 20:25] LABS: CHLORIDE 112 MEQ/L (99-109); GFR ESTIMATE (CALCULATED) 57 mL/min/; GLUCOSE 151 mg/dL (70-99); POTASSIUM 3.7 MEQ/L (3.7-5.4); SODIUM 150 MEQ/L (136-147); UREA NITROGEN (BUN) 20 mg/dL (9-23)
[2018-01-20] VITALS (30 sets, daily range): BP systolic 129–168; BP diastolic 53–102
[2018-01-20 05:35] LABS: ALBUMIN 2.1 g/dL (3.2-4.8); CHLORIDE 111 mEq/L (99-109); POTASSIUM 3.7 mEq/L (3.7-5.4); SODIUM 148 mEq/L (136-147)
[2018-01-20 05:38] LABS: MAGNESIUM 1.7 mg/dL (1.3-2.7)
[2018-01-20 05:39] LABS: GLUCOSE 237 mg/dL (70-99); TOTAL PROTEIN 4.1 g/dL (6.4-8.3)
[2018-01-20 05:40] LABS: TOTAL BILIRUBIN 0.2 mg/dL (0.0-1.0)
[2018-01-20 05:41] LABS: ALKALINE PHOSPHATASE 43 IU/L (3-129)
[2018-01-20 05:42] LABS: CREATININE 0.9 mg/dL (0.6-1.3); GFR ESTIMATE (CALCULATED) > 59 mL/min/
[2018-01-20 05:43] LABS: AST (GOT) 19 IU/L (2-34); UREA NITROGEN (BUN) 24 mg/dL (9-23)
[2018-01-20 05:45] LABS: ALT (GPT) 11 IU/L (3-49)
[2018-01-20 07:01] LABS: BASOPHIL (%) 0.2 % (0-1); EOSINOPHIL (%) 3.6 % (0-5); EOSINOPHIL COUNT 0.5 K/uL (0-0.3); IMMATURE GRANULOCYTE (%) 0.8 % (0.0-0.7); LYMPHOCYTE (%) 10.8 % (15-42); LYMPHOCYTE COUNT 1.4 K/uL (1.0-2.8); MCH 25.5 PG (29.0-34.0); MCHC 31.8 G/DL (30.0-36.0); MCV 80.3 FL (83-99); MONOCYTE (%) 4.5 % (3-12); MONOCYTE COUNT 0.6 K/uL (0-0.8); NEUTROPHIL (%) 80.1 % (45-76); NEUTROPHIL COUNT 10.6 K/uL (1.8-6.4); PLATELET COUNT 487 K/uL (156-360); RBC DIS.WIDTH-CV 16.9 % (11.8-14.6); RBC DIS.WIDTH-SD 48.1 % (39-53); RED BLOOD COUNT 2.74 M/uL (3.80-5.20); WHITE BLOOD COUNT 13.2 K/uL (4.1-10.2)
[2018-01-21] VITALS (25 sets, daily range): BP systolic 114–177; BP diastolic 41–111
[2018-01-21 05:56] LABS: BASOPHIL (%) 0.5 % (0-1); BASOPHIL COUNT 0.1 K/uL (0-0.1); EOSINOPHIL (%) 3.2 % (0-5); EOSINOPHIL COUNT 0.5 K/uL (0-0.3); HEMATOCRIT 31.9 % (36.0-46.0); IMMATURE GRANULOCYTE (%) 0.8 % (0.0-0.7); LYMPHOCYTE (%) 11.5 % (15-42); LYMPHOCYTE COUNT 1.7 K/uL (1.0-2.8); MCH 26.4 PG (29.0-34.0); MCHC 32.3 G/DL (30.0-36.0); MCV 81.8 FL (83-99); MONOCYTE (%) 6.6 % (3-12); NEUTROPHIL (%) 77.4 % (45-76); NEUTROPHIL COUNT 11.6 K/uL (1.8-6.4); PLATELET COUNT 429 K/uL (156-360); RBC DIS.WIDTH-CV 16.8 % (11.8-14.6); RBC DIS.WIDTH-SD 49.5 % (39-53)
[2018-01-21 05:58] LABS: HEMOGLOBIN 10.3 G/DL (11.9-15.5)
[2018-01-21 06:16] LABS: CHLORIDE 109 MEQ/L (99-109); GFR ESTIMATE (CALCULATED) 57 mL/min/; GLUCOSE 172 mg/dL (70-99); MAGNESIUM 2.3 mg/dl (1.3-2.7); PHOSPHORUS 2.9 mg/dL (2.5-4.9); POTASSIUM 3.7 MEQ/L (3.7-5.4); SODIUM 150 MEQ/L (136-147); UREA NITROGEN (BUN) 32 mg/dL (9-23)
[2018-01-22] VITALS (20 sets, daily range): BP systolic 108–175; BP diastolic 61–96
[2018-01-22 05:54] LABS: CHLORIDE 108 MEQ/L (99-109); CREATININE 0.9 MG/DL (0.6-1.3); GFR ESTIMATE (CALCULATED) > 59 mL/min/; GLUCOSE 179 mg/dL (70-99); MAGNESIUM 2.3 mg/dl (1.3-2.7); PHOSPHORUS 3.1 mg/dL (2.5-4.9); POTASSIUM 3.7 MEQ/L (3.7-5.4); SODIUM 147 MEQ/L (136-147); UREA NITROGEN (BUN) 39 mg/dL (9-23)
[2018-01-23] VITALS (22 sets, daily range): BP systolic 118–179; BP diastolic 54–110
[2018-01-23 05:02] LABS: BASOPHIL (%) 0.6 % (0-1); BASOPHIL COUNT 0.1 K/uL (0-0.1); EOSINOPHIL (%) 4.6 % (0-5); EOSINOPHIL COUNT 0.5 K/uL (0-0.3); HEMATOCRIT 27.9 % (36.0-46.0); HEMOGLOBIN 8.7 G/DL (11.9-15.5); IMMATURE GRANULOCYTE (%) 0.5 % (0.0-0.7); LYMPHOCYTE (%) 16.8 % (15-42); LYMPHOCYTE COUNT 1.8 K/uL (1.0-2.8); MCH 26.3 PG (29.0-34.0); MCHC 31.2 G/DL (30.0-36.0); MCV 84.3 FL (83-99); MONOCYTE (%) 7.2 % (3-12); MONOCYTE COUNT 0.8 K/uL (0-0.8); NEUTROPHIL (%) 70.3 % (45-76); NEUTROPHIL COUNT 7.7 K/uL (1.8-6.4); RBC DIS.WIDTH-CV 17.9 % (11.8-14.6); RBC DIS.WIDTH-SD 54.8 % (39-53); RED BLOOD COUNT 3.31 M/uL (3.80-5.20); WHITE BLOOD COUNT 10.9 K/uL (4.1-10.2)
[2018-01-23 05:21] LABS: CHLORIDE 110 MEQ/L (99-109); CREATININE 0.8 MG/DL (0.6-1.3); GFR ESTIMATE (CALCULATED) > 59 mL/min/; MAGNESIUM 2.1 mg/dl (1.3-2.7); PHOSPHORUS 3.7 mg/dL (2.5-4.9); POTASSIUM 4.4 MEQ/L (3.7-5.4); SODIUM 142 MEQ/L (136-147); UREA NITROGEN (BUN) 38 mg/dL (9-23)
[2018-01-23 05:22] LABS: GLUCOSE 98 mg/dL (70-99); INTER. NORMALIZED RATIO 1.1
[2018-01-23 05:25] LABS: PTT 21.9 SEC (25-37)
[2018-01-23 05:39] LABS: PLAT.SUFFICIENCY ADEQUATE; PLATELET COUNT 387 K/uL (156-360)
[2018-01-23 11:23] LABS: TYPE OF FLUID PLEURAL
[2018-01-23 11:54] LABS: APPEARANCE CLOUDY-BLOODY; BODY FLUID RBC'S 141000 /MM^3 (0-100); BODY FLUID WBC'S 3430 /MM^3 (0-500)
[2018-01-23 12:01] LABS: BODY FLUID AMYLASE 11 U/L; BODY FLUID GLUCOSE 105 MG/DL; BODY FLUID LDH 225 IU/L
[2018-01-23 12:02] LABS: BODY FLUID PROTEIN 2.4 G/DL
[2018-01-23 14:18] LABS: BODY FLUID EOSINOPHILS 1 % (0-25); MONONUCLEAR WBC'S 0 %; POLYNUCLEAR WBC'S 99 % (0-25)
[2018-01-24] VITALS (22 sets, daily range): BP systolic 91–144; BP diastolic 40–81
[2018-01-24 04:46] LABS: CHLORIDE 113 mEq/L (99-109); POTASSIUM 4.1 mEq/L (3.7-5.4); SODIUM 142 mEq/L (136-147)
[2018-01-24 04:52] LABS: CREATININE 0.8 mg/dL (0.6-1.3); GFR ESTIMATE (CALCULATED) > 59 mL/min/; PHOSPHORUS 3.8 mg/dL (2.5-4.9)
[2018-01-24 04:53] LABS: UREA NITROGEN (BUN) 49 mg/dL (9-23)
[2018-01-24 04:54] LABS: GLUCOSE 195 mg/dL (70-99); MAGNESIUM 1.4 mg/dL (1.3-2.7)
[2018-01-25] VITALS (19 sets, daily range): BP systolic 91–142; BP diastolic 43–62
[2018-01-25 06:42] LABS: CHLORIDE 105 MEQ/L (99-109); CREATININE 1.1 MG/DL (0.6-1.3); GFR ESTIMATE (CALCULATED) 51 mL/min/; GLUCOSE 182 mg/dL (70-99); MAGNESIUM 2.4 mg/dl (1.3-2.7); POTASSIUM 4.6 MEQ/L (3.7-5.4); SODIUM 138 MEQ/L (136-147); UREA NITROGEN (BUN) 50 mg/dL (9-23)
[2018-01-25 06:45] LABS: PHOSPHORUS 5.6 mg/dL (2.5-4.9)
[2018-01-25 07:37] LABS: BASOPHIL (%) 0.6 % (0-1); BASOPHIL COUNT 0.1 K/uL (0-0.1); EOSINOPHIL (%) 5.2 % (0-5); EOSINOPHIL COUNT 0.5 K/uL (0-0.3); HEMATOCRIT 23.7 % (36.0-46.0); HEMOGLOBIN 7.7 G/DL (11.9-15.5); IMMATURE GRANULOCYTE (%) 0.9 % (0.0-0.7); LYMPHOCYTE (%) 17.2 % (15-42); LYMPHOCYTE COUNT 1.8 K/uL (1.0-2.8); MCH 25.7 PG (29.0-34.0); MCHC 32.5 G/DL (30.0-36.0); MONOCYTE (%) 8.9 % (3-12); MONOCYTE COUNT 0.9 K/uL (0-0.8); NEUTROPHIL (%) 67.2 % (45-76); NEUTROPHIL COUNT 6.9 K/uL (1.8-6.4); PLATELET COUNT 499 K/uL (156-360); RBC DIS.WIDTH-CV 17.8 % (11.8-14.6); RBC DIS.WIDTH-SD 50.9 % (39-53); WHITE BLOOD COUNT 10.2 K/uL (4.1-10.2)
[2018-01-25 12:36] LABS: BASOPHIL (%) 0.4 % (0-1); EOSINOPHIL (%) 5.8 % (0-5); EOSINOPHIL COUNT 0.6 K/uL (0-0.3); HEMOGLOBIN 7.8 G/DL (11.9-15.5); IMMATURE GRANULOCYTE (%) 0.9 % (0.0-0.7); LYMPHOCYTE (%) 18.7 % (15-42); MCH 26.5 PG (29.0-34.0); MCHC 33.9 G/DL (30.0-36.0); MCV 78.2 FL (83-99); MONOCYTE (%) 7.7 % (3-12); MONOCYTE COUNT 0.8 K/uL (0-0.8); NEUTROPHIL (%) 66.5 % (45-76); NEUTROPHIL COUNT 7.2 K/uL (1.8-6.4); PLATELET COUNT 506 K/uL (156-360); RBC DIS.WIDTH-CV 17.7 % (11.8-14.6); RBC DIS.WIDTH-SD 49.9 % (39-53); RED BLOOD COUNT 2.94 M/uL (3.80-5.20); WHITE BLOOD COUNT 10.8 K/uL (4.1-10.2)
[2018-01-25 19:55] LABS: STOOL OCCULT BLD 1ST SPECIMEN POSITIVE
[2018-01-25 22:55] LABS: BODY FLUID PH 7.7 (())
[2018-01-26] VITALS (24 sets, daily range): BP systolic 91–159; BP diastolic 46–85
[2018-01-26 03:54] LABS: BASOPHIL (%) 0.4 % (0-1); EOSINOPHIL (%) 9.1 % (0-5); EOSINOPHIL COUNT 0.9 K/uL (0-0.3); HEMATOCRIT 21.3 % (36.0-46.0); HEMOGLOBIN 7.3 G/DL (11.9-15.5); IMMATURE GRANULOCYTE (%) 1.2 % (0.0-0.7); LYMPHOCYTE (%) 15.9 % (15-42); LYMPHOCYTE COUNT 1.5 K/uL (1.0-2.8); MCH 26.9 PG (29.0-34.0); MCHC 34.3 G/DL (30.0-36.0); MCV 78.6 FL (83-99); MONOCYTE (%) 9.1 % (3-12); MONOCYTE COUNT 0.9 K/uL (0-0.8); NEUTROPHIL (%) 64.3 % (45-76); NEUTROPHIL COUNT 6.2 K/uL (1.8-6.4); PLATELET COUNT 521 K/uL (156-360); RBC DIS.WIDTH-CV 17.6 % (11.8-14.6); RBC DIS.WIDTH-SD 50.1 % (39-53); RED BLOOD COUNT 2.71 M/uL (3.80-5.20); WHITE BLOOD COUNT 9.7 K/uL (4.1-10.2)
[2018-01-26 04:06] LABS: ALBUMIN 2.1 g/dL (3.2-4.8); CHLORIDE 106 mEq/L (99-109); POTASSIUM 4.4 mEq/L (3.7-5.4); SODIUM 135 mEq/L (136-147)
[2018-01-26 04:08] LABS: GLUCOSE 183 mg/dL (70-99)
[2018-01-26 04:10] LABS: TOTAL BILIRUBIN 0.2 mg/dL (0.0-1.0)
[2018-01-26 04:12] LABS: GFR ESTIMATE (CALCULATED) 57 mL/min/; PHOSPHORUS 4.9 mg/dL (2.5-4.9)
[2018-01-26 04:13] LABS: UREA NITROGEN (BUN) 47 mg/dL (9-23)
[2018-01-26 04:14] LABS: AST (GOT) 23 IU/L (2-34); DIRECT BILIRUBIN 0.2 mg/dL (0.0-0.3)
[2018-01-26 04:15] LABS: ALKALINE PHOSPHATASE 85 IU/L (3-129); ALT (GPT) 14 IU/L (3-49); MAGNESIUM 1.7 mg/dL (1.3-2.7)
[2018-01-26 04:42] LABS: PREALBUMIN 7.6 mg/dL (10-40); TRIGLYCERIDES 250 MG/DL (Normal: <150)
[2018-01-26 05:12] LABS: LACTATE DEHYDROGENASE 192 IU/L (20-246)
[2018-01-27] VITALS (25 sets, daily range): BP systolic 118–174; BP diastolic 52–101
[2018-01-27 06:02] LABS: CHLORIDE 108 MEQ/L (99-109); GFR ESTIMATE (CALCULATED) 57 mL/min/; GLUCOSE 157 mg/dL (70-99); PHOSPHORUS 4.3 mg/dL (2.5-4.9); POTASSIUM 4.2 MEQ/L (3.7-5.4); SODIUM 137 MEQ/L (136-147); UREA NITROGEN (BUN) 44 mg/dL (9-23)
[2018-01-27 06:09] LABS: MAGNESIUM 1.9 mg/dl (1.3-2.7)
[2018-01-27 06:31] LABS: HEMATOCRIT 20.9 % (36.0-46.0); MCH 26.1 PG (29.0-34.0); MCHC 32.5 G/DL (30.0-36.0); MCV 80.1 FL (83-99); PLATELET COUNT 549 K/uL (156-360); RBC DIS.WIDTH-CV 17.8 % (11.8-14.6); RBC DIS.WIDTH-SD 51.5 % (39-53); RED BLOOD COUNT 2.61 M/uL (3.80-5.20); WHITE BLOOD COUNT 8.4 K/uL (4.1-10.2)
[2018-01-27 06:40] LABS: HEMOGLOBIN 6.8 G/DL (11.9-15.5)
[2018-01-28] VITALS (25 sets, daily range): BP systolic 75–182; BP diastolic 51–84
[2018-01-28 06:06] LABS: CHLORIDE 106 MEQ/L (99-109); GFR ESTIMATE (CALCULATED) 57 mL/min/; GLUCOSE 144 mg/dL (70-99); POTASSIUM 3.8 MEQ/L (3.7-5.4); SODIUM 138 MEQ/L (136-147); UREA NITROGEN (BUN) 49 mg/dL (9-23)
[2018-01-28 06:10] LABS: MAGNESIUM 2.2 mg/dl (1.3-2.7)
[2018-01-28 11:59] LABS: 24 HR VOLUME 3050 MLS; URINE UREA NITROGEN 15220 MG/24 HR
[2018-01-29] VITALS (21 sets, daily range): BP systolic 116–178; BP diastolic 57–80
[2018-01-29 05:59] LABS: CHLORIDE 108 MEQ/L (99-109); GFR ESTIMATE (CALCULATED) 57 mL/min/; GLUCOSE 119 mg/dL (70-99); MAGNESIUM 2.2 mg/dl (1.3-2.7); PHOSPHORUS 3.8 mg/dL (2.5-4.9); POTASSIUM 3.8 MEQ/L (3.7-5.4); SODIUM 141 MEQ/L (136-147); UREA NITROGEN (BUN) 47 mg/dL (9-23)
[2018-01-29 08:53] LABS: HEMOGLOBIN 8.1 G/DL (11.9-15.5); MCH 26.9 PG (29.0-34.0); MCHC 32.4 G/DL (30.0-36.0); MCV 83.1 FL (83-99); PLATELET COUNT 587 K/uL (156-360); RBC DIS.WIDTH-CV 18.1 % (11.8-14.6); RBC DIS.WIDTH-SD 54.4 % (39-53); RED BLOOD COUNT 3.01 M/uL (3.80-5.20); WHITE BLOOD COUNT 12.2 K/uL (4.1-10.2)
[2018-01-29 10:45] LABS: THYROTROPIN (TSH) 3.5 MIU/L (0.4-5.5)
[2018-01-30] VITALS (23 sets, daily range): BP systolic 106–156; BP diastolic 42–72
[2018-01-30 05:47] LABS: CHLORIDE 110 MEQ/L (99-109); GFR ESTIMATE (CALCULATED) 57 mL/min/; MAGNESIUM 2.2 mg/dl (1.3-2.7); PHOSPHORUS 4.1 mg/dL (2.5-4.9); POTASSIUM 3.9 MEQ/L (3.7-5.4); SODIUM 145 MEQ/L (136-147); UREA NITROGEN (BUN) 50 mg/dL (9-23)
[2018-01-30 05:55] LABS: GLUCOSE 240 mg/dL (70-99)
[2018-01-30 08:30] LABS: BASOPHIL (%) 0.7 % (0-1); BASOPHIL COUNT 0.1 K/uL (0-0.1); EOSINOPHIL (%) 11.3 % (0-5); EOSINOPHIL COUNT 1.2 K/uL (0-0.3); HEMATOCRIT 25.5 % (36.0-46.0); HEMOGLOBIN 7.8 G/DL (11.9-15.5); IMMATURE GRANULOCYTE (%) 0.5 % (0.0-0.7); LYMPHOCYTE (%) 15.6 % (15-42); LYMPHOCYTE COUNT 1.6 K/uL (1.0-2.8); MCHC 30.6 G/DL (30.0-36.0); MONOCYTE (%) 5.7 % (3-12); MONOCYTE COUNT 0.6 K/uL (0-0.8); NEUTROPHIL (%) 66.2 % (45-76); NEUTROPHIL COUNT 6.8 K/uL (1.8-6.4); PLATELET COUNT 652 K/uL (156-360); RBC DIS.WIDTH-CV 18.1 % (11.8-14.6); RBC DIS.WIDTH-SD 56.8 % (39-53); WHITE BLOOD COUNT 10.3 K/uL (4.1-10.2)
[2018-01-30 14:21] LABS: PTT ND SEC (25-37)
[2018-01-30 14:52] LABS: INTER. NORMALIZED RATIO 1.4
[2018-01-30 15:13] LABS: PTT 60.5 SEC (25-37)
[2018-01-31] VITALS (22 sets, daily range): BP systolic 92–166; BP diastolic 45–89
[2018-01-31 05:59] LABS: CHLORIDE 112 MEQ/L (99-109); GFR ESTIMATE (CALCULATED) 57 mL/min/; GLUCOSE 219 mg/dL (70-99); MAGNESIUM 2.5 mg/dl (1.3-2.7); PHOSPHORUS 3.6 mg/dL (2.5-4.9); POTASSIUM 4.2 MEQ/L (3.7-5.4); SODIUM 146 MEQ/L (136-147); UREA NITROGEN (BUN) 55 mg/dL (9-23)
[2018-01-31 08:42] LABS: BASOPHIL (%) 0.6 % (0-1); BASOPHIL COUNT 0.1 K/uL (0-0.1); EOSINOPHIL (%) 16.4 % (0-5); HEMATOCRIT 25.5 % (36.0-46.0); HEMOGLOBIN 7.9 G/DL (11.9-15.5); IMMATURE GRANULOCYTE (%) 0.5 % (0.0-0.7); LYMPHOCYTE (%) 21.5 % (15-42); LYMPHOCYTE COUNT 2.7 K/uL (1.0-2.8); MCH 26.8 PG (29.0-34.0); MCV 86.4 FL (83-99); MONOCYTE (%) 6.4 % (3-12); MONOCYTE COUNT 0.8 K/uL (0-0.8); NEUTROPHIL (%) 54.6 % (45-76); NEUTROPHIL COUNT 6.8 K/uL (1.8-6.4); PLATELET COUNT 560 K/uL (156-360); RBC DIS.WIDTH-CV 18.3 % (11.8-14.6); RBC DIS.WIDTH-SD 58.3 % (39-53); RED BLOOD COUNT 2.95 M/uL (3.80-5.20); WHITE BLOOD COUNT 12.4 K/uL (4.1-10.2)
[2018-01-31 08:54] LABS: ALBUMIN 1.9 G/DL (3.2-4.8); ALKALINE PHOSPHATASE 83 IU/L (3-129); ALT (GPT) 20 IU/L (3-49); AST (GOT) 27 IU/L (2-34); TOTAL BILIRUBIN 0.2 MG/DL (0.0-1.0); TOTAL PROTEIN 5.9 G/DL (6.4-8.3)
[2018-02-01] VITALS (20 sets, daily range): BP systolic 91–138; BP diastolic 52–68
[2018-02-01 06:33] LABS: CHLORIDE 111 MEQ/L (99-109); CREATININE 0.8 MG/DL (0.6-1.3); GFR ESTIMATE (CALCULATED) > 59 mL/min/; GLUCOSE 150 mg/dL (70-99); MAGNESIUM 2.5 mg/dl (1.3-2.7); PHOSPHORUS 3.6 mg/dL (2.5-4.9); POTASSIUM 4.9 MEQ/L (3.7-5.4); SODIUM 141 MEQ/L (136-147); UREA NITROGEN (BUN) 53 mg/dL (9-23)
[2018-02-02] VITALS (18 sets, daily range): BP systolic 92–173; BP diastolic 52–84
[2018-02-02 07:59] LABS: BASOPHIL (%) 0.8 % (0-1); BASOPHIL COUNT 0.1 K/uL (0-0.1); EOSINOPHIL COUNT 1.5 K/uL (0-0.3); HEMATOCRIT 25.1 % (36.0-46.0); HEMOGLOBIN 7.9 G/DL (11.9-15.5); IMMATURE GRANULOCYTE (%) 0.8 % (0.0-0.7); MCH 26.6 PG (29.0-34.0); MCHC 31.5 G/DL (30.0-36.0); MCV 84.5 FL (83-99); MONOCYTE (%) 4.8 % (3-12); MONOCYTE COUNT 0.6 K/uL (0-0.8); NEUTROPHIL (%) 63.6 % (45-76); NEUTROPHIL COUNT 7.5 K/uL (1.8-6.4); PLATELET COUNT 605 K/uL (156-360); RBC DIS.WIDTH-CV 18.3 % (11.8-14.6); RBC DIS.WIDTH-SD 55.7 % (39-53); RED BLOOD COUNT 2.97 M/uL (3.80-5.20); WHITE BLOOD COUNT 11.7 K/uL (4.1-10.2)
[2018-02-02 08:53] LABS: ALKALINE PHOSPHATASE 88 IU/L (3-129); ALT (GPT) 17 IU/L (3-49); AST (GOT) 17 IU/L (2-34); CHLORIDE 111 MEQ/L (99-109); CREATININE 0.8 MG/DL (0.6-1.3); DIRECT BILIRUBIN 0.1 mg/dL (0.0-0.3); GFR ESTIMATE (CALCULATED) > 59 mL/min/; GLUCOSE 185 mg/dL (70-99); PREALBUMIN 10.8 mg/dL (10-40); SODIUM 141 MEQ/L (136-147); TOTAL BILIRUBIN 0.2 MG/DL (0.0-1.0); TOTAL PROTEIN 5.7 G/DL (6.4-8.3); TRIGLYCERIDES 204 MG/DL (Normal: <150); UREA NITROGEN (BUN) 56 mg/dL (9-23)
[2018-02-02 08:55] LABS: MAGNESIUM 2.1 mg/dl (1.3-2.7)
[2018-02-03] VITALS (22 sets, daily range): BP systolic 97–157; BP diastolic 51–75
[2018-02-03 07:09] LABS: HEMATOCRIT 25.4 % (36.0-46.0); HEMOGLOBIN 8.2 G/DL (11.9-15.5); MCH 26.9 PG (29.0-34.0); MCHC 32.3 G/DL (30.0-36.0); MCV 83.3 FL (83-99); RBC DIS.WIDTH-CV 18.2 % (11.8-14.6); RBC DIS.WIDTH-SD 54.4 % (39-53); RED BLOOD COUNT 3.05 M/uL (3.80-5.20); WHITE BLOOD COUNT 10.5 K/uL (4.1-10.2)
[2018-02-03 07:27] LABS: CHLORIDE 107 MEQ/L (99-109); CREATININE 0.7 MG/DL (0.6-1.3); GFR ESTIMATE (CALCULATED) > 59 mL/min/; PHOSPHORUS 3.5 mg/dL (2.5-4.9); POTASSIUM 4.5 MEQ/L (3.7-5.4); SODIUM 137 MEQ/L (136-147); UREA NITROGEN (BUN) 50 mg/dL (9-23)
[2018-02-03 07:29] LABS: GLUCOSE 116 mg/dL (70-99); MAGNESIUM 1.7 mg/dl (1.3-2.7)
[2018-02-03 07:37] LABS: BASOPHIL (%) 0.7 % (0-1); BASOPHIL COUNT 0.1 K/uL (0-0.1); EOSINOPHIL (%) 10.1 % (0-5); EOSINOPHIL COUNT 1.1 K/uL (0-0.3); IMMATURE GRANULOCYTE (%) 1.5 % (0.0-0.7); LYMPHOCYTE COUNT 2.2 K/uL (1.0-2.8); MONOCYTE COUNT 0.5 K/uL (0-0.8); NEUTROPHIL (%) 61.7 % (45-76); NEUTROPHIL COUNT 6.5 K/uL (1.8-6.4)
[2018-02-03 07:54] LABS: PLATELET COUNT 312 K/uL (156-360)
[2018-02-04] VITALS (22 sets, daily range): BP systolic 93–167; BP diastolic 53–87
[2018-02-04 04:33] LABS: CHLORIDE 105 mEq/L (99-109); HEMOGLOBIN 7.9 G/DL (11.9-15.5); MCH 27.2 PG (29.0-34.0); MCHC 32.9 G/DL (30.0-36.0); MCV 82.8 FL (83-99); POTASSIUM 3.9 mEq/L (3.7-5.4); RBC DIS.WIDTH-CV 18.1 % (11.8-14.6); RBC DIS.WIDTH-SD 54.3 % (39-53); SODIUM 136 mEq/L (136-147); WHITE BLOOD COUNT 11.2 K/uL (4.1-10.2)
[2018-02-04 04:34] LABS: MAGNESIUM 1.4 mg/dL (1.3-2.7); PLATELET COUNT 529 K/uL (156-360)
[2018-02-04 04:35] LABS: GLUCOSE 125 mg/dL (70-99)
[2018-02-04 04:38] LABS: PHOSPHORUS 3.6 mg/dL (2.5-4.9)
[2018-02-04 04:39] LABS: CREATININE 0.8 mg/dL (0.6-1.3); GFR ESTIMATE (CALCULATED) > 59 mL/min/
[2018-02-04 04:40] LABS: UREA NITROGEN (BUN) 50 mg/dL (9-23)
[2018-02-05] VITALS (13 sets, daily range): BP systolic 104–192; BP diastolic 49–82
[2018-02-05 06:55] LABS: CHLORIDE 105 MEQ/L (99-109); CREATININE 0.6 MG/DL (0.6-1.3); GFR ESTIMATE (CALCULATED) > 59 mL/min/; GLUCOSE 120 mg/dL (70-99); PHOSPHORUS 3.5 mg/dL (2.5-4.9); POTASSIUM 3.8 MEQ/L (3.7-5.4); SODIUM 135 MEQ/L (136-147); UREA NITROGEN (BUN) 45 mg/dL (9-23)
[2018-02-05 06:56] LABS: MAGNESIUM 2.4 mg/dl (1.3-2.7)
[2018-02-06 01:08] VITALS: BP 191/81
[2018-02-06 11:00] VITALS: BP 0/0
== END 2018-02-07 09:40 | DRG 853 ==
LOC: EME 19:27 → 4WEST 01-10 00:09 → EDOF 01-10 00:09 → ENRESERV 01-10 00:11 → 4EAST 01-10 01:27 → ENRESERV 01-11 19:47 → 4WEST 01-11 20:05 → ENRESERV 02-05 23:26 → CANRESERV 02-05 23:26 → ENRESERV 02-05 23:28 → 5EAST 02-06 01:21
PROVIDERS: Hospitalist; Internal Medicine; Internal Medicine Critical Care Medicine; Internal Medicine Nephrology; Physician Assistant; Physician Assistant Surgical; Specialist; Surgery
DX: A41.9 Sepsis, unspecified organism (principal); K57.21 Diverticulitis of large intestine with perforation and abscess with bleeding; K55.9 Vascular disorder of intestine, unspecified; N17.0 Acute kidney failure with tubular necrosis; J69.0 Pneumonitis due to inhalation of food and vomit; R65.20 Severe sepsis without septic shock; J90 Pleural effusion, not elsewhere classified; J44.1 Chronic obstructive pulmonary disease with (acute) exacerbation; E87.1 Hypo-osmolality and hyponatremia; E83.51 Hypocalcemia; E87.2 Acidosis; E83.39 Other disorders of phosphorus metabolism; E83.42 Hypomagnesemia; E87.0 Hyperosmolality and hypernatremia; I82.623 Acute embolism and thrombosis of deep veins of upper extremity, bilateral; E87.3 Alkalosis; L03.311 Cellulitis of abdominal wall; J96.01 Acute respiratory failure with hypoxia; E43 Unspecified severe protein-calorie malnutrition; K56.7 Ileus, unspecified; E11.65 Type 2 diabetes mellitus with hyperglycemia; E87.6 Hypokalemia; B96.1 Klebsiella pneumoniae [K. pneumoniae] as the cause of diseases classified elsewhere; Z16.12 Extended spectrum beta lactamase (ESBL) resistance; B48.8 Other specified mycoses; D50.9 Iron deficiency anemia, unspecified; I10 Essential (primary) hypertension; E78.5 Hyperlipidemia, unspecified; K21.9 Gastro-esophageal reflux disease without esophagitis; F41.9 Anxiety disorder, unspecified; D47.3 Essential (hemorrhagic) thrombocythemia; Z51.5 Encounter for palliative care; Z66 Do not resuscitate; Z87.891 Personal history of nicotine dependence; Z79.82 Long term (current) use of aspirin; Z79.84 Long term (current) use of oral hypoglycemic drugs; Z85.41 Personal history of malignant neoplasm of cervix uteri; Z87.01 Personal history of pneumonia (recurrent); Z87.19 Personal history of other diseases of the digestive system
CPT/HCPCS: 36600; 70450; 71045; 71250; 74176; 74177; 76604; 76937; 76942; 80048; 80048 91; 80053; 80202; 81003; 81050; 82150 91; 82248; 82272; 82330; 82803; 82945; 82948; 83036; 83605; 83615; 83615 91; 83690; 83735; 83880; 83986 90; 84100; 84134; 84145 90; 84157; 84443; 84478; 84484; 84540; 84630 90; 85025; 85025 91; 85027; 85610; 85730; 86850; 86900; 86901; 86920; 87040; 87070; 87075; 87077; 87086; 87102; 87106; 87177; 87186; 87205; 87329; 87493; 87506; 87641; 88302; 88304; 88307; 89051; 93005; 93970; 94002; 94003; 94010; 94640; 94640 76; 94760; 94799; 97530 GO; 97530 GP; 99202; 99281; 99285; C1751; C1753; C9113; J0330; J0692; J1100; J1120; J1170; J1335; J1450; J1644; J1815; J1940; J2060; J2185; J2248; J2270; J2405; J2543; J2704; J2930; J3010; J3370; J3475; J3480; J7030; J7040; J7050; J7070; J7120; P9016; P9047; S0028; S0030